=== PATIENT | female | born 1935 | race Caucasian/White ===

== ENCOUNTER 2020-04-04 20:32 | Inpatient (IN) | payer MEDICARE, OTHER ==
[~2020-04-04] VITALS: Ht 157.5 cm; Wt 47.2 kg
[~2020-04-04 20:32] MED LIST: ACETAMINOPHEN325 M1 PO; ATENOLOL50 MG PO; CITALOPRAM HBR20 MG PO; CLONAZEPAM0.5 MG PO; COLACE100 MG PO; DICYCLOMINE HCL20 MG PO; LASIX20 MG PO; LEVOTHYROXINE25 MCG PO; LIDOCAINE700 MG TOP; LORATADINE10 MG PO; OMEPRAZOLE40 MG PO; SIMVASTATIN20 MG PO; TEMAZEPAM7.5 MG PO; TYLENOL WITH C1 EACH PO
[2020-04-04] MEDS ORDERED: ACETAMINOPHEN 650 MG SUPP PR ONE ×2 (21:07→21:45)
[2020-04-04 21:24] LABS: BILIRUBIN,URINE SMALL (NEGATIVE); CLARITY,URINE HAZY (CLEAR); COLOR,URINE YELLOW (YELLOW); KETONES,URINE NEGATIVE (NEGATIVE); LEUKOCYTE ESTERASE ,URINE TRACE (NEGATIVE); NITRITE,URINE NEGATIVE (NEGATIVE); PROTEIN,URINE DIPSTICK >=300 (NEGATIVE); URINE UROBILINOGEN 1 mg/dL (0.2 - 1)
[2020-04-04 21:32] LABS: AMORPHOUS SEDIMENT,URINE FEW (FEW); BACTERIA,URINE MODERATE /HPF; EPITHELIAL CELLS,URINE MODERATE /LPF
[2020-04-04 21:32] LABS: BASOPHILS % 0.3 % (0.0-1.0); EOSINOPHILS % 0.1 % (0.0-6.0); HEMATOCRIT 34.8 % (34.2-44.1); HEMOGLOBIN 10.4 g/dL (12.0-16.0); LYMPHOCYTES # (AUTO) 0.7 (1.0-3.2); LYMPHOCYTES % 7.4 % (18.0-39.1); MEAN CORPUSCULAR HEMOGLOBIN 25.6 pg (28-32); MEAN CORPUSCULAR HGB CONC 29.9 g/dL (31-35); MEAN CORPUSCULAR VOLUME 85.5 fL (81-99); MONOCYTES # (AUTO) 0.7 (0.2-0.8); MONOCYTES % 7.9 % (4.4-11.3); NEUTROPHILS # (AUTO) 7.9 (2.1-6.9); NEUTROPHILS % 83.7 % (38.7-80.0); PLATELET COUNT 316 x10e3/uL (140-360); RED BLOOD COUNT 4.07 x10e6/uL (3.6-5.1); RED CELL DISTRIBUTION WIDTH 17.5 % (11.7-14.4)
[2020-04-04 21:33] LABS: MUCUS,URINE FEW (RARE)
[2020-04-04] MEDS ORDERED: CEFEPIME 1GM/NS 0.9% 50 ML 50 ML IV STA (21:35)
[2020-04-04] MEDS ORDERED: VANCOMYCIN 1GM/NS 250 ML 250 ML IV SCH (21:45)
[2020-04-04 21:58] LABS: B-TYPE NATRIURETIC PEPTIDE2 1172.8 pg/mL (0-100)
[2020-04-04 22:05] LABS: ALBUMIN 2.9 g/dL (3.5-5.0); ALBUMIN/GLOBULIN RATIO 0.6 (0.8-2.0); ANION GAP 20.2 mmol/L (8-16); CALCIUM 9.1 mg/dL (8.4-10.2); CREATININE, SERUM 1.63 mg/dL (0.57-1.11)
[2020-04-04] MEDS ORDERED: DEXTROSE 50% SYRINGE 50 ML IV STA (22:10)
[2020-04-04 22:11] LABS: CREATINE KINASE MB 3.1 ng/mL (0-5.0); POTASSIUM 6.2 mmol/L (3.5-5.1)
[2020-04-04] MEDS ORDERED: SOD POLYSTYRENE SULFONATE SUSP 15 GM/60 ML BTL PO ONE (22:15)
[2020-04-04] MEDS ORDERED: CALCIUM GLUCONATE 10% INJ 4.65 MEQ in SODIUM CHLORIDE 0.9% 50ML 50 ML IV ONE (22:15)
[2020-04-04] MEDS ORDERED: INSULIN REGULAR, HUMAN 100 UNIT/1 ML 3ML VIAL IV ONE (22:15)
[2020-04-04] MEDS ORDERED: DEXTROSE 50% SYRINGE 50 ML IV ONE (22:26)
[2020-04-05] VITALS (21 sets, daily range): BP systolic 116–153; BP diastolic 45–97
[2020-04-05 00:35] LABS: ANION GAP 15.3 mmol/L (8-16); CALCIUM 9.4 mg/dL (8.4-10.2); CREATININE, SERUM 1.64 mg/dL (0.57-1.11); POTASSIUM 5.3 mmol/L (3.5-5.1)
[2020-04-05] MEDS ORDERED: FUROSEMIDE INJ 10 MG/ML 4 ML VIAL IV ONE (01:00)
[2020-04-05 01:34] LABS: CREATINE KINASE MB 4.1 ng/mL (0-4.3)
[2020-04-05] MEDS ORDERED: ASPIRIN CHEW81 MG PO (03:00)
[2020-04-05] MEDS ORDERED: ARTIFICIAL TEAR15 ML OU (03:00)
[2020-04-05] MEDS ORDERED: LACTULOSE20 GM/30 M PO (03:00)
[2020-04-05] MEDS ORDERED: ATORVASTATIN CA20 MG PO (03:00)
[2020-04-05] MEDS ORDERED: SYMBICORT 16010.2 GM INH (03:00)
[2020-04-05] MEDS ORDERED: REMERON15 MG PO (03:00)
[2020-04-05] MEDS ORDERED: METOPROLOL TART25 MG PO (03:00)
[2020-04-05] MEDS ORDERED: MULTIVITAMINS1 EAC6 PO (03:00)
[2020-04-05] MEDS ORDERED: CETIRIZINE HCL10 M1 PO (03:00)
[2020-04-05] MEDS ORDERED: ZOFRAN4 MG PO (03:00)
[2020-04-05] MEDS ORDERED: NORVASC10 MG PO (03:00)
[2020-04-05] MEDS ORDERED: PANTOPRAZOLE SO40 MG PO (03:00)
[2020-04-05] MEDS ORDERED: ALBUTEROL2.5 MG/3 M INH (03:00)
[2020-04-05 04:47] LABS: BASOPHILS % 0.4 % (0.0-1.0); EOSINOPHILS % 0.4 % (0.0-6.0); HEMATOCRIT 31.1 % (34.2-44.1); HEMOGLOBIN 9.3 g/dL (12.0-16.0); LYMPHOCYTES # (AUTO) 0.5 (1.0-3.2); LYMPHOCYTES % 9.6 % (18.0-39.1); MEAN CORPUSCULAR HEMOGLOBIN 25.7 pg (28-32); MEAN CORPUSCULAR HGB CONC 29.9 g/dL (31-35); MEAN CORPUSCULAR VOLUME 85.9 fL (81-99); MONOCYTES # (AUTO) 0.5 (0.2-0.8); MONOCYTES % 8.7 % (4.4-11.3); NEUTROPHILS # (AUTO) 4.5 (2.1-6.9); NEUTROPHILS % 80.4 % (38.7-80.0); PLATELET COUNT 200 x10e3/uL (140-360); RED BLOOD COUNT 3.62 x10e6/uL (3.6-5.1); RED CELL DISTRIBUTION WIDTH 17.3 % (11.7-14.4)
[2020-04-05 05:01] LABS: ALBUMIN 2.7 g/dL (3.5-5.0); ALBUMIN/GLOBULIN RATIO 0.6 (0.8-2.0); ANION GAP 17.1 mmol/L (8-16); CALCIUM 9.2 mg/dL (8.4-10.2); CREATININE, SERUM 1.63 mg/dL (0.57-1.11); POTASSIUM 5.1 mmol/L (3.5-5.1)
[2020-04-05] MEDS ORDERED: ONDANSETRON HCL INJ 2MG/ML 2ML 2 MG/ML VIAL IV PRN (12:00)
[2020-04-05] MEDS ORDERED: METOPROLOL TARTRATE INJ 1 MG/ML VIAL IV PRN (12:00)
[2020-04-05] MEDS ORDERED: ACETAMINOPHEN 325 MG TAB PO PRN (12:00)
[2020-04-05] MEDS ORDERED: TEMAZEPAM 7.5 MG CAP PO PRN (12:00)
[2020-04-05] MEDS ORDERED: POLYETHYLENE GLYCOL 3350 17 GM PACK PO PRN ×2 (12:00→18:30)
[2020-04-05] MEDS ORDERED: POLYETHYLENE GL17 GM PO (12:07)
[2020-04-05] MEDS ORDERED: FAMOTIDINE 20 MG/2 ML VIAL IV SCH (17:00)
[2020-04-05] MEDS: ZINC SULFATE 220 MG CAP PO SCH ×2 (17:42→18:38)
[2020-04-05] MEDS: DOCUSATE SODIUM 100 MG CAP PO SCH ×3 (17:42→18:38)
[2020-04-05] MEDS: ASCORBIC ACID 500 MG TAB PO SCH ×2 (17:42→18:38)
[2020-04-05] MEDS ORDERED: CEFTRIAXONE SOD 1 GM/NS 50 ML 50 ML IV SCH (18:15)
[2020-04-05] MEDS ORDERED: LACTULOSE SYRUP 20 GM/30 ML UDC PO PRN (18:30)
[2020-04-05] MEDS ORDERED: ALBUTEROL SULF 0.083% NEB SOLN 3 ML NEB INH PRN (18:30)
[2020-04-05] MEDS ORDERED: MIRTAZAPINE 15 MG TAB PO PRN (18:30)
[2020-04-05] MEDS ORDERED: MAGNESIUM HYDROXIDE 30 ML UDC PO ONE (18:45)
[2020-04-05] MEDS: ALBUTEROL SULF 0.083% NEB SOLN 3 ML NEB NEB SCH ×2 (19:20→23:00)
[2020-04-05] MEDS: CEFTRIAXONE SOD 1 GM/NS 50 ML 50 ML IV SCH (19:29)
[2020-04-05] MEDS: ARTIFICIAL TEARS (OPTH) 15 ML BTL OU SCH (20:44)
[2020-04-05] MEDS: ACETAMINOPHEN/CODEINE 300MG - 30MG TAB PO SCH (20:44)
[2020-04-05] MEDS: ATORVASTATIN 20 MG TAB PO SCH (20:44)
[2020-04-05] MEDS ORDERED: ALBUTEROL/IPRATROPIUM 3 ML NEB NEB SCH (22:00)
[2020-04-06] VITALS (15 sets, daily range): BP systolic 104–157; BP diastolic 41–88
[2020-04-06] MEDS: ALBUTEROL SULF 0.083% NEB SOLN 3 ML NEB NEB SCH ×6 (03:00→23:35)
[2020-04-06 05:09] LABS: BASOPHILS % 0.7 % (0.0-1.0); EOSINOPHILS # (AUTO) 0.1 (0.0-0.4); EOSINOPHILS % 0.8 % (0.0-6.0); HEMATOCRIT 30.5 % (34.2-44.1); HEMOGLOBIN 9.1 g/dL (12.0-16.0); LYMPHOCYTES # (AUTO) 0.3 (1.0-3.2); LYMPHOCYTES % 5.4 % (18.0-39.1); MEAN CORPUSCULAR HEMOGLOBIN 25.6 pg (28-32); MEAN CORPUSCULAR HGB CONC 29.8 g/dL (31-35); MEAN CORPUSCULAR VOLUME 85.7 fL (81-99); MONOCYTES # (AUTO) 0.4 (0.2-0.8); MONOCYTES % 6.1 % (4.4-11.3); NEUTROPHILS # (AUTO) 5.1 (2.1-6.9); NEUTROPHILS % 86.2 % (38.7-80.0); PLATELET COUNT 204 x10e3/uL (140-360); RED BLOOD COUNT 3.56 x10e6/uL (3.6-5.1); RED CELL DISTRIBUTION WIDTH 17.2 % (11.7-14.4)
[2020-04-06] MEDS: DOCUSATE SODIUM 100 MG CAP PO SCH ×2 (05:51→17:39)
[2020-04-06 06:15] LABS: ALBUMIN 2.5 g/dL (3.5-5.0); ALBUMIN/GLOBULIN RATIO 0.6 (0.8-2.0); ANION GAP 19.6 mmol/L (8-16); CHOL/HDL RATIO 2.7 (3.0-3.6); CREATININE, SERUM 1.31 mg/dL (0.57-1.11); MAGNESIUM 2.2 MG/DL (1.3-2.1); PHOSPHORUS 3.8 MG/DL (2.3-4.7); POTASSIUM 3.6 mmol/L (3.5-5.1)
[2020-04-06 06:35] LABS: THYROID STIMULATING HORMONE 1.909 uIU/mL (0.350-4.940)
[2020-04-06] MEDS: ASPIRIN 81 MG CHEW TAB PO SCH (08:35)
[2020-04-06] MEDS: METOPROLOL TARTRATE 25 MG TAB PO SCH ×2 (08:35→17:39)
[2020-04-06] MEDS: GUAIFENESIN 600MG/DEXTROMETHORPHAN 30MG TABSR PO SCH ×2 (08:36→17:39)
[2020-04-06] MEDS: CHOLECALCIFEROL 400 UNIT TAB PO SCH (08:36)
[2020-04-06] MEDS: LEVOTHYROXINE SODIUM 100 MCG TAB PO SCH (08:36)
[2020-04-06] MEDS: PANTOPRAZOLE SOD 40 MG TABEC PO SCH (08:36)
[2020-04-06] MEDS: MULTIVITAMINS/MINERALS TAB PO SCH (08:36)
[2020-04-06] MEDS: ZINC SULFATE 220 MG CAP PO SCH ×2 (08:38→17:39)
[2020-04-06] MEDS: ASCORBIC ACID 500 MG TAB PO SCH ×2 (08:38→17:39)
[2020-04-06] MEDS: ARTIFICIAL TEARS (OPTH) 15 ML BTL OU SCH ×3 (08:48→22:25)
[2020-04-06] MEDS: BUDESONIDE/FORMOTEROL 160/4.5MCG INHALER INH SCH ×2 (09:00→17:00)
[2020-04-06] MEDS ORDERED: AMLODIPINE BESYLATE 10 MG TAB PO SCH (09:00)
[2020-04-06] MEDS ORDERED: ZITHROMAX500 MG PO (13:19)
[2020-04-06] MEDS ORDERED: CEFDINIR300 MG PO (13:19)
[2020-04-06] MEDS: FUROSEMIDE INJ 10 MG/ML 4 ML VIAL IV SCH (17:38)
[2020-04-06] MEDS: ATORVASTATIN 20 MG TAB PO SCH (20:29)
[2020-04-06] MEDS: CEFTRIAXONE SOD 1 GM/NS 50 ML 50 ML IV SCH (20:29)
[2020-04-06] MEDS: ACETAMINOPHEN/CODEINE 300MG - 30MG TAB PO SCH (20:30)
[2020-04-07] VITALS (9 sets, daily range): BP systolic 111–147; BP diastolic 50–81
[2020-04-07] MEDS ORDERED: SODIUM CHLORIDE 0.9% 250ML 250 ML ONE (02:31)
[2020-04-07] MEDS: ALBUTEROL SULF 0.083% NEB SOLN 3 ML NEB NEB SCH ×2 (04:05→07:00)
[2020-04-07 04:50] LABS: BASOPHILS % 0.5 % (0.0-1.0); EOSINOPHILS # (AUTO) 0.1 (0.0-0.4); EOSINOPHILS % 1.1 % (0.0-6.0); HEMATOCRIT 29.5 % (34.2-44.1); HEMOGLOBIN 8.9 g/dL (12.0-16.0); LYMPHOCYTES # (AUTO) 0.4 (1.0-3.2); LYMPHOCYTES % 6.3 % (18.0-39.1); MEAN CORPUSCULAR HEMOGLOBIN 25.2 pg (28-32); MEAN CORPUSCULAR HGB CONC 30.2 g/dL (31-35); MEAN CORPUSCULAR VOLUME 83.6 fL (81-99); MONOCYTES # (AUTO) 0.5 (0.2-0.8); MONOCYTES % 7.5 % (4.4-11.3); NEUTROPHILS # (AUTO) 5.4 (2.1-6.9); PLATELET COUNT 215 x10e3/uL (140-360); RED BLOOD COUNT 3.53 x10e6/uL (3.6-5.1); RED CELL DISTRIBUTION WIDTH 16.8 % (11.7-14.4)
[2020-04-07 05:10] LABS: ANION GAP 16.2 mmol/L (8-16); CALCIUM 8.8 mg/dL (8.4-10.2); CREATININE, SERUM 1.04 mg/dL (0.57-1.11); POTASSIUM 3.2 mmol/L (3.5-5.1)
[2020-04-07] MEDS ORDERED: POTASSIUM CHLORIDE 20 MEQ TAB CR PO ONE (06:14)
[2020-04-07] MEDS: DOCUSATE SODIUM 100 MG CAP PO SCH (06:35)
[2020-04-07] MEDS: ARTIFICIAL TEARS (OPTH) 15 ML BTL OU SCH (07:56)
[2020-04-07] MEDS: FUROSEMIDE INJ 10 MG/ML 4 ML VIAL IV SCH (07:56)
[2020-04-07] MEDS: ASPIRIN 81 MG CHEW TAB PO SCH (07:56)
[2020-04-07] MEDS: METOPROLOL TARTRATE 25 MG TAB PO SCH (07:57)
[2020-04-07] MEDS: MULTIVITAMINS/MINERALS TAB PO SCH (07:57)
[2020-04-07] MEDS: GUAIFENESIN 600MG/DEXTROMETHORPHAN 30MG TABSR PO SCH (07:57)
[2020-04-07] MEDS: PANTOPRAZOLE SOD 40 MG TABEC PO SCH (07:58)
[2020-04-07] MEDS: ASCORBIC ACID 500 MG TAB PO SCH (07:58)
[2020-04-07] MEDS: ZINC SULFATE 220 MG CAP PO SCH (07:58)
[2020-04-07] MEDS: CHOLECALCIFEROL 400 UNIT TAB PO SCH (07:58)
[2020-04-07] MEDS: LEVOTHYROXINE SODIUM 100 MCG TAB PO SCH (07:58)
[2020-04-07] MEDS: BUDESONIDE/FORMOTEROL 160/4.5MCG INHALER INH SCH (09:00)
== END 2020-04-07 09:52 | DRG 871 ==
LOC: ER 20:54 → ERHOLD 22:27 → ICU 04-05 01:59
PROVIDERS: ADMIT Internal Medicine; ATTEND Internal Medicine
DX: A41.9 Sepsis, unspecified organism (principal); G93.41 Metabolic encephalopathy; J96.01 Acute respiratory failure with hypoxia; I50.23 Acute on chronic systolic (congestive) heart failure; E87.2 Acidosis; I13.0 Hypertensive heart and chronic kidney disease with heart failure and stage 1 through stage 4 chronic kidney disease, or unspecified chronic kidney disease; N17.9 Acute kidney failure, unspecified; Z68.1 Body mass index [BMI] 19.9 or less, adult; E87.5 Hyperkalemia; R62.7 Adult failure to thrive; N18.30 Chronic kidney disease, stage 3 unspecified; F41.9 Anxiety disorder, unspecified; I35.0 Nonrheumatic aortic (valve) stenosis; E78.5 Hyperlipidemia, unspecified; K21.9 Gastro-esophageal reflux disease without esophagitis; E03.9 Hypothyroidism, unspecified; K58.9 Irritable bowel syndrome, unspecified; R13.12 Dysphagia, oropharyngeal phase; F03.90 Unspecified dementia, unspecified severity, without behavioral disturbance, psychotic disturbance, mood disturbance, and anxiety; Z11.59 Encounter for screening for other viral diseases; Z95.810 Presence of automatic (implantable) cardiac defibrillator; Z87.440 Personal history of urinary (tract) infections; Z88.2 Allergy status to sulfonamides; Z88.8 Allergy status to other drugs, medicaments and biological substances; E87.6 Hypokalemia
CPT/HCPCS: 36415; 71045; 80048; 80053; 80061; 81001; 82550; 82553; 83036; 83605; 83690; 83735; 83880; 84100; 84443; 84484; 85025; 87040; 87086; 93005; 93306; 94640; 94660; 97139; 99284; J0610; J0692; J0696; J1817; J1940; J3370; J7050; J7799; U0002

== ENCOUNTER 2020-04-12 13:58 | Inpatient (IN) | payer MEDICARE, OTHER ==
[~2020-04-12] VITALS: Ht 157.5 cm; Wt 47.2 kg
[~2020-04-12 13:58] MED LIST changes: +ALBUTEROL2.5 MG/3 M INH; +ARTIFICIAL TEAR15 ML OU; +ASPIRIN CHEW81 MG PO; +ATORVASTATIN CA20 MG PO; +CEFDINIR300 MG PO; +CETIRIZINE HCL10 M1 PO; +LACTULOSE20 GM/30 M PO; +METOPROLOL TART25 MG PO; +MULTIVITAMINS1 EAC6 PO; +NORVASC10 MG PO; +PANTOPRAZOLE SO40 MG PO; +POLYETHYLENE GL17 GM PO; +REMERON15 MG PO; +SYMBICORT 16010.2 GM INH; +ZITHROMAX500 MG PO; +ZOFRAN4 MG PO
[2020-04-12] MEDS ORDERED: SODIUM CHLORIDE 0.9% 1000ML 1,000 ML IV STA (14:18)
--- NOTE | 2020-04-12 14:19 | NUR ---
CALLED [facility] AND TALKED TO NURSE VILCHIS. STATES PT IS HOSPICE AND DNR AND WILL FAX OVER TO US. PT WITH UNK HX OF UNK TYPE OF RESPIRATORY FAILURE FOR UNK REASONS. PT LAST COVID TEST OVER 3 WKS AGO, "I THINK" PER MAME AND WAS NEGATIVE AT THAT TIME.
[2020-04-12 15:17] LABS: BASOPHILS % 0.3 % (0.0-1.0); EOSINOPHILS % 0.2 % (0.0-6.0); HEMATOCRIT 28.9 % (34.2-44.1); HEMOGLOBIN 8.4 g/dL (12.0-16.0); LYMPHOCYTES # (AUTO) 0.5 (1.0-3.2); LYMPHOCYTES % 7.1 % (18.0-39.1); MEAN CORPUSCULAR HEMOGLOBIN 25.2 pg (28-32); MEAN CORPUSCULAR HGB CONC 29.1 g/dL (31-35); MEAN CORPUSCULAR VOLUME 86.8 fL (81-99); MONOCYTES # (AUTO) 0.5 (0.2-0.8); MONOCYTES % 7.9 % (4.4-11.3); NEUTROPHILS # (AUTO) 5.4 (2.1-6.9); NEUTROPHILS % 83.9 % (38.7-80.0); PLATELET COUNT 263 x10e3/uL (140-360); RED BLOOD COUNT 3.33 x10e6/uL (3.6-5.1); RED CELL DISTRIBUTION WIDTH 17.1 % (11.7-14.4)
[2020-04-12 15:29] LABS: INR 1.02; PROTHROMBIN TIME 13.9 seconds (11.9-14.5)
[2020-04-12 15:30] LABS: PARTIAL THROMBOPLASTIN TIME 28.6 seconds (23.8-35.5)
[2020-04-12 15:37] LABS: ALBUMIN 2.9 g/dL (3.5-5.0); ALBUMIN/GLOBULIN RATIO 0.7 (0.8-2.0); ANION GAP 17.9 mmol/L (8-16); CREATININE, SERUM 1.5 mg/dL (0.57-1.11)
[2020-04-12 15:40] LABS: POTASSIUM 5.9 mmol/L (3.5-5.1)
[2020-04-12 15:42] LABS: CLARITY,URINE SL CLOUDY (CLEAR); COLOR,URINE YELLOW (YELLOW); LEUKOCYTE ESTERASE ,URINE NEGATIVE (NEGATIVE); NITRITE,URINE NEGATIVE (NEGATIVE); PROTEIN,URINE DIPSTICK >=300 (NEGATIVE)
[2020-04-12 15:43] LABS: BILIRUBIN,URINE NEGATIVE (NEGATIVE); KETONES,URINE NEGATIVE (NEGATIVE); URINE UROBILINOGEN 0.2 mg/dL (0.2 - 1)
[2020-04-12] MEDS: AZITHROMYCIN 500MG/NS 250 ML 250 ML IV SCH (16:04)
[2020-04-12 16:06] LABS: B-TYPE NATRIURETIC PEPTIDE2 1687.8 pg/mL (0-100)
[2020-04-12 16:20] LABS: WBC,URINE (MAN) 0-5 /HPF (0-5)
[2020-04-12 16:21] LABS: AMORPHOUS SEDIMENT,URINE MANY (FEW); BACTERIA,URINE FEW /HPF; YEAST,URINE FEW
[2020-04-12 16:22] LABS: EPITHELIAL CELLS,URINE MODERATE /LPF
[2020-04-12] MEDS: CEFTRIAXONE SOD 2 GM/NS 100 ML 100 ML IV SCH (16:41)
--- NOTE | 2020-04-12 17:33 | Diagnostic Imaging Report ---
EXAMINATION: CHEST SINGLE (PORTABLE) INDICATION: Hypoxia COMPARISON: Chest x-ray on 04/04/2020 FINDINGS: TUBES and LINES: The pacemaker is intact. LUNGS: The lungs are hyperinflated as before. There is interval worsening of interstitial and patchy airspace opacities throughout both lungs. PLEURA: No pleural effusion or pneumothorax. HEART AND MEDIASTINUM: The cardiomediastinal silhouette is enlarged. Aortic valve replacement. Unchanged surgical clips along the left mediastinum. There are atherosclerotic calcifications within the aorta. BONES AND SOFT TISSUES: Degenerative changes in the spine and shoulders. Unchanged median sternotomy wires. Soft tissues are unremarkable. UPPER ABDOMEN: No free air under the diaphragm. IMPRESSION: Mild cardiomegaly with interval worsening of interstitial and airspace opacities most compatible with worsening pulmonary edema. Superimposed multifocal pneumonia cannot be excluded and should be considered in the proper context. Signed by: Jeremy Leslie MD on 04/12/2020 5:29 PM
[2020-04-12] MEDS ORDERED: FUROSEMIDE INJ 10 MG/ML 4 ML VIAL IV ONE (18:15)
--- NOTE | 2020-04-12 18:21 | Emergency Department Note ---
History of Present Illnes History of Present Illness Chief Complaint: COVID PUI History of Present Illness This is a 85 year old female [facility] WITH CALLED EMS FOR "HYPOXIA." PT IS ABLE TO BE AROUSED AND WANTS HER FEET COVERED. RECENT DISCHARGE FROM HERE, WAS COVID NEGATIVE. NO CALL FROM FACILITY OR EMS SCIENTIFIC INFORMATICS LEADER. PT WITH NRB MASK. PT STAT ROOM 5, ROOM AIR SATS VERIFIED AND ARE 54% CRISP WAVEFORM WITH CORRESPONDING HEART RATE AND PULSE. Historian: Patient, Supervisor Travel Information [facility]/EMS Arrival Mode: [facility] Treatment SCIENTIFIC INFORMATICS LEADER: IV, O2, EKG, See EMS Report Additional Treatment SCIENTIFIC INFORMATICS LEADER: [employer] [facility] Clinical Trial Assistant Required: No Onset (how long ago): hour(s) Radiation: Reports non-radiation Severity: severe Onset quality: gradual Duration (how long): hour(s) Timing of current episode: constant Progression: unchanged Chronicity: recurrent Context: Reports recent illness Relieving factors: none Exacerbating factors: none Associated symptoms: Reports shortness of breath Past Medical/Family History Physician Review I have reviewed the patient's past medical and family history. Any updates have been documented here. Past Medical History Recent Fever: No Clinical Suspicion of Infectio: No New/Unexplained Change in Ment: No Past Medical History: CHF, Hypothyroidism, UTI's, Anxiety, Depression, GERD, Hyperlipedemia, Chronic Kidney Disease Other Medical History: CONSTIPATION IBS INSOMNIA DYSPHAGIA MUSCULAR WASTING AND DISUSE ATROPHY NONRHEUMATIC AORTIC STENOSIS URINE RETENTION Past Surgical History: Pacer/AICD Other Surgery: PACEMAKER Social History Smoking Cessation: Never Smoker Counseling Performed: No Alcohol Use: None Any Illegal Drug Use: No TB Exposure/Symptoms: No Physically hurt or threatened: No Family History Family history of heart diseas: No Other Last Tetanus: UTD Any Pre-Existing Lines (PICC,: No Review of Systems ROS Narrative Unable to obtain ROS: Unable to obtain due to, altered mental status Review of Systems Constitutional: Reports no symptoms EENTM: Reports no symptoms Cardiovascular: Reports no symptoms Respiratory: Reports as per HPI Gastrointestinal: Reports no symptoms Genitourinary: Reports no symptoms Musculoskeletal: Reports no symptoms Integumentary: Reports no symptoms Neurological: Reports no symptoms Psychological: Reports no symptoms Endocrine: Reports no symptoms Hematological/Lymphatic: Reports no symptoms Physical Exam Related Data Allergies: Coded Allergies: Sulfa (Sulfonamide Antibiotics) (Verified Allergy, Unknown, 04/07/20) baclofen (Verified Allergy, Unknown, 08/21/14) ipratropium (Verified Allergy, Unknown, 08/21/14) tolmetin (Verified Allergy, Unknown, 08/21/14) Triage Vital Signs Vital Signs Date Time Temp Pulse Resp B/P (MAP) Pulse Ox O2 Delivery O2 Flow Rate FiO2 04/12/20 14:09 97.9 72 22 116/61 52 Room Air 04/12/20 14:18 15.0 Vital signs reviewed: Yes Physical Exam CONSTITUTIONAL Constitutional: Present well-developed, Present well-nourished HENT HENT: Present normocephalic, Present atraumatic, Present oropharynx clear/moist, Present nose normal HENT L/R: Present left ext ear normal, Present right ext ear normal EYES Eyes: Reports PERRL, Reports conjunctivae normal NECK Neck: Present ROM normal PULMONARY Pulmonary: Present effort normal, Present respiratory distress (TACHYPNEIC), Present rales, Present rhonchi CARDIOVASCULAR Cardiovascular: Present regular rhythm, Present heart sounds normal, Present capillary refill normal, Present normal rate GASTROINTESTINAL Abdominal: Present soft, Present nontender, Present bowel sounds normal GENITOURINARY Genitourinary: Present exam deferred SKIN Skin: Present warm, Present dry MUSCULOSKELETAL Musculoskeletal: Present ROM normal, Present edema NEUROLOGICAL Neurological: Present alert, Present no gross motor or sensory deficits, Present other (ORIENTED TO NAME ONLY) PSYCHOLOGICAL Results Laboratory Result Diagram: 04/12/20 1430 04/12/20 1430 Laboratory Laboratory Tests Test 04/12/20 15:00 04/12/20 14:30 04/12/20 14:00 White Blood Count 6.45 x10e3/uL (4.8-10.8) Red Blood Count 3.33 x10e6/uL (3.6-5.1) Hemoglobin 8.4 g/dL (12.0-16.0) Hematocrit 28.9 % (34.2-44.1) Mean Corpuscular Volume 86.8 fL (81-99) Mean Corpuscular Hemoglobin 25.2 pg (28-32) Mean Corpuscular Hemoglobin Concent 29.1 g/dL (31-35) Red Cell Distribution Width 17.1 % (11.7-14.4) Platelet Count 263 x10e3/uL (140-360) Neutrophils (%) (Auto) 83.9 % (38.7-80.0) Lymphocytes (%) (Auto) 7.1 % (18.0-39.1) Monocytes (%) (Auto) 7.9 % (4.4-11.3) Eosinophils (%) (Auto) 0.2 % (0.0-6.0) Basophils (%) (Auto) 0.3 % (0.0-1.0) Neutrophils # (Auto) 5.4 (2.1-6.9) Lymphocytes # (Auto) 0.5 (1.0-3.2) Monocytes # (Auto) 0.5 (0.2-0.8) Eosinophils # (Auto) 0.0 (0.0-0.4) Basophils # (Auto) 0.0 (0.0-0.1) Absolute Immature Granulocyte (auto 0.04 x10e3/uL (0-0.1) Prothrombin Time 13.9 seconds (11.9-14.5) Prothromb Time International Ratio 1.02 Activated Partial Thromboplast Time 28.6 seconds (23.8-35.5) Urine Color Yellow (YELLOW) Urine Clarity Sl cloudy (CLEAR) Urine pH 5 (5 - 7) Urine Specific [place] >=1.030 (1.010-1.025) Urine Protein >=300 (NEGATIVE) Urine Glucose (UA) Negative (NEGATIVE) Urine Ketones Negative (NEGATIVE) Urine Blood Negative (NEGATIVE) Urine Nitrite Negative (NEGATIVE) Urine Bilirubin Negative (NEGATIVE) Urine Urobilinogen 0.2 mg/dL (0.2 - 1) Urine Leukocyte Esterase Negative (NEGATIVE) Urine RBC None /HPF (0-5) Urine WBC 0-5 /HPF (0-5) Urine Epithelial Cells Moderate /LPF (NONE) Urine Amorphous Sediment Many (FEW) Urine Bacteria Few /HPF (NONE) Urine Yeast Few (NONE) Sodium Level 140 mmol/L (136-145) Potassium Level 5.9 mmol/L (3.5-5.1) Chloride Level 100 mmol/L (98-107) Carbon Dioxide Level 28 mmol/L (22-29) Anion Gap 17.9 mmol/L (8-16) Blood Urea Nitrogen 61 mg/dL (7-26) Creatinine 1.50 mg/dL (0.57-1.11) Estimat Glomerular Filtration Rate 33 ML/MIN (60-) BUN/Creatinine Ratio 41 (6-25) Glucose Level 73 mg/dL (74-118) Calcium Level 9.0 mg/dL (8.4-10.2) Total Bilirubin 0.2 mg/dL (0.2-1.2) Aspartate Amino Transf (AST/SGOT) 55 IU/L (5-34) Alanine Aminotransferase (ALT/SGPT) 28 IU/L (0-55) Alkaline Phosphatase 134 IU/L (40-150) Creatine Kinase 15 IU/L (29-168) Creatine Kinase MB 2.00 ng/mL (0-5.0) Troponin I 0.204 ng/mL (0-0.300) Total Protein 7.0 g/dL (6.5-8.1) Albumin 2.9 g/dL (3.5-5.0) Globulin 4.1 g/dL (2.3-3.5) Albumin/Globulin Ratio 0.7 (0.8-2.0) Lactic Acid Level 0.9 mmol/L (0.5-2.0) B-Type Natriuretic Peptide 1687.8 pg/mL (0-100) Lab results reviewed: Yes Imaging Imaging results reviewed: Yes Impressions EXAMINATION: CHEST SINGLE (PORTABLE) INDICATION: Hypoxia COMPARISON: Chest x-ray on 04/04/2020 FINDINGS: TUBES and LINES: The pacemaker is intact. LUNGS: The lungs are hyperinflated as before. There is interval worsening of interstitial and patchy airspace opacities throughout both lungs. PLEURA: No pleural effusion or pneumothorax. HEART AND MEDIASTINUM: The cardiomediastinal silhouette is enlarged. Aortic valve replacement. Unchanged surgical clips along the left mediastinum. There are atherosclerotic calcifications within the aorta. BONES AND SOFT TISSUES: Degenerative changes in the spine and shoulders. Unchanged median sternotomy wires. Soft tissues are unremarkable. UPPER ABDOMEN: No free air under the diaphragm. IMPRESSION: Mild cardiomegaly with interval worsening of interstitial and airspace opacities most compatible with worsening pulmonary edema. Superimposed multifocal pneumonia cannot be excluded and should be considered in the proper context. Signed by: Jeremy Leslie MD on 04/12/2020 5:29 PM Procedures 12 Lead ECG Interpretation ECG Interpretation : ECG: ECG 1 Clinical Trial Assistant: Interpreted by ED physician Date: Apr 12, 2020 Time: 16:56 Rhythm: paced (CONTINUOUS VENTRICULAR PACED) Rate: normal BPM: 68 QRS axis: right Conduction: intraventricular conduction delay (VENTRIC PACED) ST segment elevation: V1 (UPSLOPING), V2 (UPSLOPING) T wave inversion: aVL Clinical Impression: abnormal ECG Critical Care Time Total Critical Care Time (min): 35 Critical care time exclusive o: separately billable procedures Critcal care necessary due to: respiratory failure Critcal care time spent by me: develop tx plan w patient/surrogate, discussion w primary provider, examination of patient, order/review laboratory studies, order/review radiographic studies, pulse oximetry, re-evaluation of patient condition, review of old charts Assessment & Plan Medical Decision Making MDM HYPOXIA FROM NH REQUIRING NRB - CHECK CBC, CHEM, ECG, CARDIACS, BNP, CXR, BLOOD CX'S, UA/CX, COVID SWAB - R/O PNEUMONIA, CHF, STEMI/NSTEMI, COVID19, SEPSIS Reassessment Reassessment PT IS DNR - SPOKE WITH NEXT OF KIN, ROBIN TEJEDA [phone], WHO CONFIRMS PT IS DNR, NO AGRESSIVE MEASURES - NO CPR, NO INTUBATION, NO SHOCK, NO [facility]. I ADMITTED PT TO DR KULWINDER RIVERA LASIX 40 MG IV Q6HR X 3 DOSES Assessment & Plan Final Impression: (1) Renal failure (2) Respiratory failure with hypoxia (3) Dementia Depart Disposition: ADMITTED Last Vital Signs Date Time Temp Pulse Resp B/P (MAP) Pulse Ox O2 Delivery O2 Flow Rate FiO2 04/12/20 16:41 66 16 111/51 100 Non-Rebreather 15.0 04/12/20 14:09 97.9 Home Meds Active Scripts Azithromycin (ZITHROMAX) 500 Mg Tablet, 500 MG PO DAILY, #5 Prov:KATHIE RENO VAPOR COATER 04/06/20 Cefdinir (OMNICEF) 300 Mg Capsule, 300 MG PO BID for 5 Days, CAP Prov:KATHIE RENO M VAPOR COATER 04/06/20 Reported Medications Polyethylene Glycol 3350 (POLYETHYLENE GLYCOL 3350) 17 Gm Powd.pack, 17 GM PO DAILY PRN for CONSTIPATION, PACKET 04/05/20 Ondansetron Hcl* (ZOFRAN*) 4 Mg Tablet, 4 MG PO Q8H PRN for NAUSEA AND VOMITING 04/05/20 Budesonide/Formoterol Fumarate (SYMBICORT 160-4.5 MCG INHALER) 10.2 Gm Hfa.aer.ad, 2 INH INH BID 04/05/20 Mirtazapine (REMERON) 15 Mg Tablet, 15 MG PO HS PRN for INSOMNIA, TAB 04/05/20 Pantoprazole Sodium* (PROTONIX) 40 Mg Tablet.dr, 40 MG PO DAILY, TAB 04/05/20 Amlodipine Besylate (NORVASC) 10 Mg Tab, 10 MG PO DAILY, TAB Hold if SBP less than 100 and DBP less than 60, HR less than 60 04/05/20 Multivitamin With Minerals (MULTIVITAMINS WITH MINERALS) 1 Each Tablet, 1 TAB PO DAILY 04/05/20 Metoprolol Tartrate (METOPROLOL TARTRATE) 25 Mg Tablet, 12.5 MG PO BID, TAB Hold for SBP less than 110 or HR less than 55 04/05/20 Lactulose (LACTULOSE) 20 Gm/30 Ml Solution, 30 ML PO DAILY PRN for CONSTIPATION, EACH 04/05/20 Cetirizine Hcl (CETIRIZINE HCL) 10 Mg Tab.chew, 10 MG PO HS 04/05/20 Atorvastatin Calcium (ATORVASTATIN CALCIUM) 20 Mg Tablet, 20 MG PO HS, #30 TAB 04/05/20 Aspirin (ASPIRIN CHEW) 81 Mg Chew, 81 MG PO DAILY, #30 TAB Give for A Fib 04/05/20 Dextran 70/Hypromellose (ARTIFICIAL TEARS EYE DROPS) 15 Ml Drops, 1 DROP OU TID, #1 ML 04/05/20 Albuterol Sulfate (ALBUTEROL SULFATE) 2.5 Mg/3 Ml Vial.neb, 1 INH INH Q6H PRN for SHORTNESS OF BREATH 04/05/20 Acetaminophen With Codeine (TYLENOL WITH CODEINE #3 TABLET) 1 Each Tablet, 300 MG PO HS, TAB 08/21/14 Levothyroxine Sodium (LEVOTHYROXINE SODIUM) 25 Mcg Tablet, 100 MCG PO DAILY 08/21/14 Docusate Sodium (COLACE) 100 Mg Cap, 100 MG PO Q12H, #30 CAP 08/21/14 Acetaminophen (ACETAMINOPHEN) 325 Mg Tablet, 650 MG PO Q6H PRN for ELEVATED TEMPERATURE, TAB 08/21/14 Discontinued Reported Medications Temazepam (TEMAZEPAM) 7.5 Mg Capsule, 15 MG PO DAILY 08/21/14 Dicyclomine Hcl (DICYCLOMINE HCL) 20 Mg Tablet, 20 MG PO TID, TAB 08/21/14 Citalopram Hydrobromide (CITALOPRAM HBR) 20 Mg Tablet, 40 MG PO DAILY, TAB 08/21/14 Medications in the ED Sodium Chloride 1,000 ml @ 0 mls/hr Q0M STAT IV Last administered on 04/12/20at 16:04; Admin Dose 999 MLS/HR; Start 04/12/20 at 14:18; Stop 04/12/20 at 14:22; Status DC Ceftriaxone Sodium 100 ml @ 100 mls/hr Q24H IV Last administered on 04/12/20at 16:41; Admin Dose 100 MLS/HR; Start 04/12/20 at 14:30; Stop 04/17/20 at 14:29 Azithromycin 250 ml @ 100 mls/hr Q24H IV Last administered on 04/12/20at 16:04; Admin Dose 100 MLS/HR; Start 04/12/20 at 15:00; Stop 04/17/20 at 14:59 Furosemide 40 mg ONCE ONCE IV ; Start 04/12/20 at 18:15; Stop 04/12/20 at 18:16 SARAI WRAY MD Apr 12, 2020 18:21
--- NOTE | 2020-04-12 18:21 | NUR ---
VORB X TWICE. ORDER FOR BILATERAL WRIST RESTRAINTS. RESTRAINTS PLACED.
[2020-04-12] MEDS ORDERED: ONDANSETRON HCL INJ 2MG/ML 2ML 2 MG/ML VIAL IV PRN ×2 (18:45→21:15)
[2020-04-12] MEDS ORDERED: ACETAMINOPHEN 325 MG TAB PO PRN (21:15)
[2020-04-12] MEDS ORDERED: LACTULOSE SYRUP 20 GM/30 ML UDC PO PRN (21:15)
[2020-04-12] MEDS ORDERED: ACETAMINOPHEN/CODEINE 300MG - 30MG TAB PO PRN (21:15)
[2020-04-12] MEDS ORDERED: HYDRALAZINE HCL 20 MG/ML VIAL IV PRN (21:15)
[2020-04-12] MEDS: DOCUSATE SODIUM 100 MG CAP PO SCH (21:15)
[2020-04-12] MEDS ORDERED: POLYETHYLENE GLYCOL 3350 17 GM PACK PO PRN (21:15)
[2020-04-12] MEDS ORDERED: MIRTAZAPINE 15 MG TAB PO PRN (21:15)
[2020-04-12 22:45] VITALS: BP 112/42
[2020-04-12 22:50] VITALS: BP 112/42
--- NOTE | 2020-04-12 23:00 | NUR ---
RECEIVED PATIENT IN STABLE CONDITION AOX1, NO SIGNS OF DISTRESS NOTED. 1:1 SITTER IS AT BEDSIDE AND PATIENT SHOWS NO SIGNS OF PAIN AT THIS TIME. NONREBREATHER MASK IS PATENT AND FLOWING AT 15 LITERS AND O2 SATURATION IS AT 98%. BED IS IN LOW POSITION, BOTH SIDE RAILS ARE UP, CALL LIGHT IS WITHIN EASY REACH, WILL CONTINUE TO MONITOR.
[2020-04-12] MEDS: LORAZEPAM INJ 2 MG/ML VIAL IV PRN (23:09)
[2020-04-12] MEDS: FUROSEMIDE INJ 10 MG/ML 4 ML VIAL IV SCH (23:09)
[2020-04-13 00:28] LABS: CREATINE KINASE MB 2.3 ng/mL (0-5.0)
[2020-04-13 01:02] VITALS: BP 102/45
[2020-04-13] MEDS: LORAZEPAM INJ 2 MG/ML VIAL IV PRN (04:51)
[2020-04-13 05:00] VITALS: BP 117/47
[2020-04-13 05:27] LABS: BASOPHILS % 0.4 % (0.0-1.0); EOSINOPHILS % 0.1 % (0.0-6.0); HEMATOCRIT 29.4 % (34.2-44.1); HEMOGLOBIN 8.2 g/dL (12.0-16.0); LYMPHOCYTES # (AUTO) 0.6 (1.0-3.2); LYMPHOCYTES % 5.6 % (18.0-39.1); MEAN CORPUSCULAR HEMOGLOBIN 24.9 pg (28-32); MEAN CORPUSCULAR HGB CONC 27.9 g/dL (31-35); MEAN CORPUSCULAR VOLUME 89.4 fL (81-99); MONOCYTES # (AUTO) 0.8 (0.2-0.8); MONOCYTES % 7.1 % (4.4-11.3); NEUTROPHILS # (AUTO) 9.7 (2.1-6.9); NEUTROPHILS % 86.3 % (38.7-80.0); PLATELET COUNT 304 x10e3/uL (140-360); RED BLOOD COUNT 3.29 x10e6/uL (3.6-5.1)
[2020-04-13 05:38] LABS: CREATINE KINASE MB 2.4 ng/mL (0-5.0)
[2020-04-13] MEDS: FUROSEMIDE INJ 10 MG/ML 4 ML VIAL IV SCH ×2 (06:06→12:00)
[2020-04-13 06:09] LABS: ALBUMIN 2.9 g/dL (3.5-5.0); ALBUMIN/GLOBULIN RATIO 0.7 (0.8-2.0); ANION GAP 20.8 mmol/L (8-16); CALCIUM 8.7 mg/dL (8.4-10.2); CREATININE, SERUM 1.72 mg/dL (0.57-1.11); POTASSIUM 5.8 mmol/L (3.5-5.1)
[2020-04-13] MEDS ORDERED: BUDESONIDE/FORMOTEROL 160/4.5MCG INHALER INH SCH (07:00)
--- NOTE | 2020-04-13 07:00 | NUR ---
CHANGE OF SHIFT REPORT RECEIVED FROM PM NURSE. PT RESTING, SITTER AT BEDSIDE. INFORMED BY SYSTEM CONFIGURATION SPECIALIST RN PT WAS VERY CONFUSED AND COMBATIVE, WOULD CONTINUE TO PULL OFF OXYGEN, SO PT WAS MEDICATED WITH ATIVAN. PT SLEEPING COMFORTABLY AT THIS TIME, LABORED RESPIRATIONS NOTES. INFORMED PT IS DNR.
[2020-04-13] MEDS ORDERED: LEVOTHYROXINE SODIUM 25 MCG TABLET PO SCH (07:30)
[2020-04-13 08:12] VITALS: BP 117/47
[2020-04-13] MEDS ORDERED: MULTIVITAMINS/MINERALS TAB PO SCH (09:00)
[2020-04-13] MEDS: METOPROLOL TARTRATE 25 MG TAB PO SCH ×2 (09:00→17:00)
[2020-04-13] MEDS ORDERED: PANTOPRAZOLE SOD 40 MG TABEC PO SCH (09:00)
[2020-04-13] MEDS ORDERED: ASPIRIN 81 MG CHEW TAB PO SCH (09:00)
[2020-04-13] MEDS ORDERED: AMLODIPINE BESYLATE 10 MG TAB PO SCH (09:00)
[2020-04-13] MEDS: DOCUSATE SODIUM 100 MG CAP PO SCH (09:15)
--- NOTE | 2020-04-13 09:20 | NUR ---
PT WAS SKILLED AT [facility]
--- NOTE | 2020-04-13 10:01 | NUR ---
RECEIVED CALL FROM PT'S NIECE ROBIN TEJEDA, WHO STATES SHE IS PT'S NEXT OF KIN AND IS IN CHARGE OF PATIENT'S AFFAIRS. FAMILY MEMBER STATES SHE WAS INFORMED BY [facility] PT HAS BEEN EATING LESS OVER THE PAST FEW WEEKS AND MAY HAVE ASPIRATED. WILL WITHHOLD ORAL MEDICATIONS AND ORAL INTAKE UNTIL SPEECH EVAL COMPLETED.
--- NOTE | 2020-04-13 10:43 | Consultation ---
DATE OF CONSULTATION: Pulmonary Critical Care Consultation CHIEF COMPLAINT: Decreased awareness and chest congestion. HISTORY OF PRESENT ILLNESS: The patient is an 85-year-old woman. She has a history of aortic stenosis and chronic congestive heart failure. She was recently hospitalized at [facility] from April 04 to April 07 with exacerbation of CHF as well as chronic kidney disease and dementia. She now [facility] from the [facility] facility with low oxygen saturations and increased confusion. PAST SURGICAL HISTORY: AICD placement. PAST MEDICAL HISTORY: 1. Hypothyroidism. 2. Chronic renal disease, stage 3. 3. Aortic stenosis. 4. Dementia. FAMILY HISTORY: Noncontributory. SOCIAL HISTORY: The patient has not been a smoker or drinker. She lives at a local care home. ALLERGIES: SULFA, BACLOFEN, AND IPRATROPIUM. REVIEW OF SYSTEMS: The patient has been less responsive. There are no reported fevers. There was no report of chest pain. She has increased congestion and dyspnea. She has no abdominal pain, nausea, or vomiting reported. PHYSICAL EXAMINATION: VITAL SIGNS: Blood pressure is 117/47, saturations are 100% on a non-rebreather, and the pulse is 75. The respiratory rate is 18. HEENT: Shows no facial swelling or erythema. LYMPHATIC: Shows no submandibular, cervical, or supraclavicular adenopathy. CARDIAC: Reveals regular rate and rhythm with normal S1 and S2. LUNGS: Auscultation of lungs reveals rhonchorous breath sounds bilaterally. There is no wheezing. ABDOMEN: Soft and nontender. There is no rebound or guarding. EXTREMITIES: Show no leg edema or calf tenderness. There is no cyanosis or clubbing. SKIN: Shows no rashes. LABORATORY DATA: White blood cell count is 11.2 and hemoglobin is 8.2. The platelet count is 304. The BUN to creatinine ratio is 62 to 1.72. The other electrolytes are within normal limits. Potassium is 5.8. Albumin is 2.9. RADIOGRAPHIC DATA: Chest x-ray shows mild cardiomegaly with interstitial worsening airspace disease and pulmonary edema. IMPRESSION: 1. Wvjke-qc-ofhykgc systolic heart failure. 2. Aortic stenosis. 3. Anemia, unspecified. 4. Ribqp-wy-wfhyrdu renal insufficiency. 5. Possible aspiration pneumonia. PLAN: 1. Continue diuretics for now. 2. Cardiology evaluation. 3. Antibiotics for possible aspiration pneumonia. 4. Speech therapy evaluation. 5. Physical therapy. 6. DVT prophylaxis. 7. The patient is DNR at this time. MD NAYELI Bowie/MODL /[id number]
--- NOTE | 2020-04-13 11:47 | NUR ---
UPON ENTERING PATIENT'S ROOM, NOTED PT'S OXYGENATION SATURATION WHICH HAD BEEN 91-90% ON NRB WAS DROPPING TO 80'S, THEN DROPPED TO 70'S THEN 60'S WITHIN A SPAN OF 30 SECONDS. PT HAD VERY SHALLOW RESPIRATIONS AND WITH WET LUNG SOUNDS. RT CALLED FOR DEEP SUCTIONING TREATMENT AND MD WAS NOTIFIED.
--- NOTE | 2020-04-13 12:00 | NUR ---
DR. MARILYN CLEANING ARRIVED AT BEDSIDE. EXAMINED PATIENT. PT HAS FAINT PULSE AT THIS TIME, HR NOTED 60'S, PACED RHYTHM. CONTINUING TO HAVE SHALLOW RESPIRATIONS ON 15L NRB.WILL CONTINUE TO MONITOR.
--- NOTE | 2020-04-13 12:15 | NUR ---
PT NO LONGER HAS SPONTANEOUS RESPIRATIONS, NO PULSE PALPATED. CALLED .
--- NOTE | 2020-04-13 12:20 | NUR ---
DR. CLEANING ARRIVED AT BEDSIDE. EXAMINED PATIENT. PT PRONOUNCED .
--- NOTE | 2020-04-13 12:43 | NUR ---
PT'S NEXT OF KIN NOTIFIED OF PT'S PASSING. SPOKE WITH ROBIN TEJEDA, PATIENT'S NIECE.
[2020-04-13] MEDS: CEFTRIAXONE SOD 2 GM/NS 100 ML 100 ML IV SCH (14:30)
[2020-04-13] MEDS: AZITHROMYCIN 500MG/NS 250 ML 250 ML IV SCH (15:00)
--- NOTE | 2020-04-13 16:43 | NUR ---
Nutrition Intervention Note RD Recommendation(s) for Physician: -Continue current diet, texture per GROUP HOME COUNSELOR. Consider K restriction if trend remains elevated. -Recommend Ensure Enlive BID for adequacy. -If pt unable to meet needs via po soon, consider DHT placement and initiate TF of [place] 1.2 at 10 ml/hr. Advance as tolerated to goal rate of 55 ml/hr (to provide 1584 kcal and 73 gm protein). Water flushes per MD. -Pt at risk for refeeding, monitor BMP with Mg and Phos closely. Replace low lytes as needed. Patient meets criteria for unspecified SEVERE protein-calorie malnutrition. Plan of Care: RD following, monitoring for tolerance and adequacy. Diet, ONS, and TF rec's. Nutrition reason for involvement: nutrition risk trigger RD Assessment 04/13: 85 YOF admitted from SNF for dementia, renal failure, and respiratory failure. Pt discharged from hospital a few days ago, was here last week for CHF exacerbation, sepsis, CKD, and dementia. Pt seen today per [facility] screen. Prior malnutrition assessment remains appropriate. Pt with poor po intake during prior admit last week. Pt currently on NRB mask and mentally altered. Pt DNR per MD notes. Rec's provided pending plan of care. Chart reviewed. Will continue to monitor. Principal Problems/Diagnoses: dementia, renal failure, respiratory failure PMH: CHF, hypothyroidism, UTIs, anxiety, depression, GERD, hyperlipidemia, chronic kidney disease stage 3, irritable bowel syndrome, insomnia, dysphagia, nonrheumatic aortic stenosis, urine retention, muscle wasting/disuse atrophy, cognitive communication deficit, ambulatory dysfunction, history of falls, dementia, adult failure to thrive. GI: flat/soft abdomen, NT, no BM recorded Skin: skin tear L hand Labs: 04/13: Na 144, K 5.8, BUN 62, Cr 1.72, Gluc 65 Meds: zofran, lipitor, abx, protonix, MVI with minerals, synthroid, colace, remeron, miralax, lactulose Ht: 62 in Wt: 104 lbs BMI: 19.0 kg/m2 IBW: 110 lbs Malnutrition Evaluation (04/13/20) The patient meets criteria for unspecified SEVERE protein-calorie malnutrition. Energy intake: <75% of estimated energy requirements for >1 month- per admit last week Weight loss: Unable to evaluate, wt stable x 1 week per prior admit Fat loss: Moderate, decreased skinfold thickness to triceps Muscle loss: severe, clavicle protrusion, temporal wasting Supporting Evidence: Fluid accumulation: no edema Functional Status: not assessed Nutrition Prescription (Diet Order): cardiac Estimated Nutritional Needs: 1346-8992 calories/day (30-35 kcal/kg CBW) 57-70 g protein/day (1.2-1.5 g pro/kg CBW) Diet Adequacy: not meeting kcal and protein needs Tolerance: pending, on NRB mask Diet Education Needs Assessment: Diet education not indicated Nutrition Care Level: moderate Nutrition Diagnosis: Severe protein calorie malnutrition related to chronic illness as evidenced by pt meeting <75% of estimated energy needs for > 1 month and moderate/severe muscle and fat depletion. Goal: Patient will meet 75-100% of estimated needs by follow up Progress: N/A Interventions: -fat, mineral, texture- modified diet, Commercial beverage, Recommended Modifications Monitoring/Evaluation: -Total energy intake, Total protein intake, Modified diet, Liquid supplement, Weight change Signed: Yuridia Michael RD, LD, [facility]
--- NOTE | 2020-04-13 18:05 | NUR ---
LIGHTING TECHNICIAN FROM [facility] ARRIVED. PT'S REMAINS TRANSPORTED TO HOME.
[2020-04-13] MEDS ORDERED: HEPARIN SOD (PORCINE) 5,000 UNIT/ML VIAL SC SCH (21:00)
[2020-04-13] MEDS ORDERED: ATORVASTATIN 20 MG TAB PO SCH (21:00)
--- NOTE | 2020-04-14 01:38 | Discharge Summary ---
DATE OF : Today, 04/13/2020. TIME OF : 1220. CHIEF COMPLAINT/PRESENT ILLNESS: Hypoxia. PRIMARY CARE PHYSICIAN: Dr. Dl Bryan. CONSULTING PHYSICIANS: Dr. So Cardona with Cardiology, Dr. Carlos Motley with Psychiatry, Dr. Farrukh William with Pulmonology/Critical Care Medicine. HISTORY OF PRESENT ILLNESS: The patient is an 85-year-old female from [facility], who was discharged from [facility] on 04/08/2020 after acute exacerbation of CHF with aortic stenosis, elevated troponin, who was admitted here again to [facility] on 04/12/2020, on non-rebreather mask due to hypoxia. Per emergency department documentation, the patient was arousable, wanted her feet covered with SpO2 of 54% around the time of admission. Rosanna Poon, ED RN spoke with Jacqueline at [facility], who stated the patient was on hospice status with DNR in place and that documentation will be faxed over. The patient's discharge diagnoses from a recent previous hospitalization were elevated troponin, acute exacerbation of CHF with aortic stenosis, chronic kidney disease stage 3, dementia, and acute hypokalemia. PAST MEDICAL HISTORY: CHF, hypothyroidism, UTIs, anxiety, depression, GERD, hyperlipidemia, chronic kidney disease stage 3, irritable bowel syndrome, insomnia, dysphagia, nonrheumatic aortic stenosis, urine retention, muscle wasting/disuse atrophy, cognitive communication deficit, ambulatory dysfunction, history of falls, dementia, adult failure to thrive. PAST SURGICAL HISTORY: AICD placement. FAMILY HISTORY: Noncontributory. SOCIAL HISTORY: The patient denied any previous use of tobacco, alcohol, or illicit drugs. shelter resident. ALLERGIES: BACLOFEN, TOLMETIN, IPRATROPIUM, AND SULFA. HOSPITAL COURSE: Vital signs on admission; temperature 97.9, pulse 72, respirations 22, blood pressure 116/61, pulse oximetry 52% on room air and 100% on non-rebreather mask. On admission; WBC 6.45, hemoglobin 8.4, hematocrit 28.9, and platelets 263. PT 13.9, INR 1.02, PTT 28.6. Sodium 140, potassium 5.9, chloride 100, CO2 of 28, anion gap 17.9, BUN 61, creatinine 1.5, estimated GFR 33, glucose 73, lactic acid 0.9, calcium 9, total bilirubin 0.2, AST 55, ALT 28, alkaline phosphatase 134. Creatine kinase 15, CK-MB 2.0, troponin I 0.204. B-type natriuretic peptide 1687.8, total protein 7, albumin 2.9. Urinalysis essentially negative, showed many amorphous sediment, few yeast, few bacteria. Coronavirus PCR was collected on 04/12, with results pending. Blood cultures x2 showed no growth after 24 hours and urine culture with no growth. Today, on 04/13; WBCs 11.19, hemoglobin 8.2, hematocrit 29.4, platelets 304, neutrophils 86.3%. Sodium 144, potassium 5.8, chloride 104, CO2 of 25, anion gap 20.8, BUN 62, creatinine 1.72, estimated GFR 28, glucose 65, calcium 8.7, total bilirubin 0.2, AST 60, ALT 30, alkaline phosphatase 172, total protein 7.0, albumin 2.9, globulin 4.1. Creatine kinase 17 twice, CK-MB 2.3 and then 2.4, troponin I 0.247 and then 0.226. Chest x-ray on 04/12 showed mild cardiomegaly with interval worsening of interstitial and airspace opacities, most compatible with worsening pulmonary edema, superimposed multifocal pneumonia could not be excluded and should be considered in the proper context. Admitting diagnoses per emergency physician, Dr. Quezada included renal failure, respiratory failure with hypoxia and dementia. He spoke with next of kin, Chen Aponte, who confirmed that the patient was DNR, no aggressive measures to be taken, no CPR, no intubation, no shock, no mechanical ventilation. Dr. Quezada had spoken with Dr. Aguilar, who wanted Lasix 40 mg IV every 6 hours x3 doses. The patient was seen by Dr. Farrukh William with Pulmonology/Critical Care Medicine on 04/13. Diagnoses listed in his consultation note include iibgd-ck-qmmilyr systolic heart failure, aortic stenosis, unspecified anemia, nymuc-gy-bwdwudm renal insufficiency, and possible aspiration pneumonia. Antibiotics, ceftriaxone and azithromycin were started for possible aspiration pneumonia. Diuretics were continued and Cardiology was consulted for evaluation. Speech Therapy evaluation and Physical Therapy were ordered. Per documentation by Stephenie Shaw RN, just before noon, she entered the patient's room and noted that the patient's oxygenation saturation which had been 90% to 91% on non-rebreather mask was dropping to the 80s, then dropped to the 70s, then 60s within a span of 30 seconds. The patient had very shallow respirations and with wet lung sounds. Respiratory therapist was called for deep suctioning treatment and was notified. Dr. Farrukh William arrived at the bedside and examined the patient. She had a faint pulse. Heart rate in the 60s with a paced rhythm. Continued to have shallow respirations on non-rebreather mask, then subsequently lost spontaneous respirations, had no pulse. Dr. William arrived back at the bedside, examined the patient, and the patient was pronounced at 12:20 p.m. just towards just afternoon. The patient's next of kin was notified of the patient's passing, which was Chen Aponte, the patient's niece. ADMITTING DIAGNOSES: 1. Qiaqb-wq-txbiklc systolic congestive heart failure with aortic stenosis. 2. Acute hypoxic respiratory failure due to congestive heart failure. 3. Acute kidney injury on chronic kidney disease stage 3. 4. Possible aspiration pneumonia. 5. Acute hyperkalemia with potassium level of 5.9. DISCHARGE DIAGNOSES: 1. Kemgx-rj-zsdxmxi systolic congestive heart failure with aortic stenosis. 2. Acute hypoxic respiratory failure due to congestive heart failure. 3. Acute kidney injury on chronic kidney disease stage 3. 4. Possible aspiration pneumonia. 5. Acute hyperkalemia with potassium level of 5.9. Dictated by Ananth Silva NP Liam Aguilar MD HWP/MODL /[id number]
--- NOTE | 2020-04-16 07:59 | NUR ---
Called and spoke to Luis Em, brother of patient, and informed him of the necklace of the patient found in the room while cleaning after the patient left. He stated he will tell his daughter to come pick it up.
--- OUTSIDE RECORDS SUMMARY | 2020-04-16 18:30 | XMS REPORT | Continuity of Care Document ---
Author Author [facility] t Organization [facility] Address [address] [place] [address] [place] [id number] Phone Unavailable Care Team Providers Care [employer] Name Role Phone Genaro WRAY Attphys Unavailable KILLTEODORA DURHAM Attphys Unavailable KILLTEODORA DURHAM Admphys Unavailable Problems This patient has no known problems. Allergies, Adverse Reactions, Alerts This patient has no known allergies or adverse reactions. Medications This patient has no known medications. Procedures This patient has no known procedures. Encounters Start Date/Time End Date/Time [facility] ID Source 2019-12-09 22:59:00 2019-12-09 22:59:00 Emergency E [facility] [id number] [facility] Results Test Description Test Time Test Comments Results Result Comments Source CHEST SINGLE (PORTABLE) 2020-04-12 17:25:00 [facility] CENTERName: BIBIANA ALCANTARA : 1935 Sex: F [facility] [address] [place], [place] [address] Patient Name: BIBIANA ALCANTARA MR #: [id number] : 1935 Age/Sex: 85/F Req #: [id number] Adm Physician: Ordered by: SARAI WRAY MD Report #: [id number] Location: ER Room/Bed: Procedure: [id number] DX/CHEST SINGLE (PORTABLE) Exam Date: 04/12/20 Exam Time: 1452 REPORT STATUS: Signed EXAMINATION: CHEST SINGLE (PORTABLE) INDICATION: Hypoxia COMPARISON: Chest x-ray on 04/04/2020 FINDINGS: TUBES and LINES: The pacemaker is intact. LUNGS: The lungs are hyperinflated as before. There is interval worsening of interstitial and patchy airspace opacities throughout both lungs. PLEURA: No pleural effusion or pneumothorax. HEART AND MEDIASTINUM: The cardiomediastinal silhouette is enlarged. Aortic valve replacement. Unchanged surgical clips along the left mediastinum. There are atherosclerotic calcifications within the aorta. BONES AND SOFT TISSUES: Degenerative changes in the spine and shoulders. Unchanged median sternotomy wires. Soft tissues are unremarkable. UPPER ABDOMEN: No free air under the diaphragm. IMPRESSION: Mild cardiomegaly with interval worsening of interstitial and airspace opacities most compatible with worsening pulmonary edema. Superimposed multifocal pneumonia cannot be excluded and should be considered in the proper context. Signed by: Carolin Russ MD on 04/12/2020 5:29 PM Dictated By: CAROLIN RUSS MD 28 Transcribed By: IFEANYI on 04/12/201728 COPY TO: SARAI WRAY MD CHEST SINGLE (PORTABLE) 2020-04-04 22:45:00 [facility] : 1935 Sex: F [place] [address] Patient Name: BIBIANA ALCANTARA MR #: [id number] : 1935 Age/Sex: 85/F Req #: [id number] Adm Physician: TEODORA MIRAMONTES MD Ordered by: ALIYAH PEDERSON DO Report #: [id number] Location: [facility] Room/Bed: [place] [address] Procedure: [id number] DX/CHEST SINGLE (PORTABLE) Exam Date: 04/04/20 Exam Time: 2129 REPORT STATUS: Signed EXAMINATION: CHEST SINGLE (PORTABLE) INDICATION: Short of breath, weakness COMPARISON: None FINDINGS: TUBES and LINES: Right chest cardiac device with leads in the right atrium, and right ventricle.. LUNGS: Hyperexpanded lungs. Mild prominence of pulmonary interstitial markings. Prominent pulmonary vasculature. PLEURA: No pleural effusion or pneumothorax. HEART AND MEDIASTINUM: Cardiac size is mildly enlarged. Aortic valve replacement. Left coronary stent. Surgical clips along the mediastinum. BONES AND SOFT TISSUES: No acute osseous lesion. Soft tissues are unremarkable. Sternotomy wires. UPPER ABDOMEN: No free air under the diaphragm. Cholecystectomy clips. Probable mild vertebral body compressions in the lower thoracic and upper lumbar spine. IMPRESSION: Cardiomegaly and pulmonary vascular congestion, suspect pulmonary interstitial edema. A component of infection is possible. Signed by: Natalio Zuñiga DO on 04/04/2020 10:47 PM Dictated By: NATALIO ZUÑIGA DO 46 Transcribed By: IFEANYI on 04/04/202246 COPY TO: ALIYAH PEDERSON,
== END 2020-04-13 18:10 | disposition expired | DRG 291 ==
LOC: ER 14:23 → ERHOLD 18:42 → IMCU 21:35
PROVIDERS: ADMIT Internal Medicine; ATTEND Internal Medicine
DX: I13.0 Hypertensive heart and chronic kidney disease with heart failure and stage 1 through stage 4 chronic kidney disease, or unspecified chronic kidney disease (principal); I50.23 Acute on chronic systolic (congestive) heart failure; J69.0 Pneumonitis due to inhalation of food and vomit; J96.01 Acute respiratory failure with hypoxia; N17.9 Acute kidney failure, unspecified; N18.30 Chronic kidney disease, stage 3 unspecified; E87.5 Hyperkalemia; F41.9 Anxiety disorder, unspecified; E03.9 Hypothyroidism, unspecified; I35.0 Nonrheumatic aortic (valve) stenosis; K58.9 Irritable bowel syndrome, unspecified; Z74.09 Other reduced mobility; F03.90 Unspecified dementia, unspecified severity, without behavioral disturbance, psychotic disturbance, mood disturbance, and anxiety; K21.9 Gastro-esophageal reflux disease without esophagitis; Z91.81 History of falling
CPT/HCPCS: 36415; 51700; 71045; 80053; 81001; 82550; 82553; 83605; 83880; 84484; 85025; 85610; 85730; 87040; 87086; 93005; 99284; J0456; J0696; J1940; J2060; J7030